=== PATIENT | female | born 1995 | race Caucasian/White ===

== ENCOUNTER 2023-04-17 13:36 | Emergency (ER) | payer BC, SELFPAY ==
[2023-04-17 13:40] VITALS: BP 150/85; PULSE 85; RESP 16; TEMP 36.3; O2SAT 100
--- NOTE | 2023-04-17 14:07 | ED.GENADULT ---
HPI - General Adult General Chief complaint: Unspecified Stated complaint: positive test/has nexplanon Time Seen by Provider: 04/17/23 13:47 Source: patient Mode of arrival: ambulatory Limitations: no limitations History of Present Illness HPI narrative: This is a 27-year-old female who presents to the ED for concerns of . She is here for confirmation of positive test taken at home. She states she has been having some symptoms for the past 1-1/2 weeks. These include nausea fatigue, vaginal spotting today and urinary frequency. Patient reports that she has a Nexplanon in place that was implanted 4 months ago. She had an IUD before this. She states she does not normally have regular periods. She states she does not want a full work-up today but wants confirmation of the test. She states her OB stopped taking her insurance. G1, P1. Related Data Allergies Allergy/AdvReac Type Severity Reaction Status Date / Time No Known Allergies Allergy Unverified 04/17/23 13:45 Review of Systems Review of Systems: All systems as dictated in HPI Exam Narrative: GENERAL: Well-appearing, well-nourished, and in no acute distress. HEAD: Normocephalic, atraumatic. EYES: PERRLA and EOMI. ENT: Nares clear, no rhinorrhea or epistaxis. Mucous membranes moist. Oropharynx without tonsillar hypertrophy exudate or other lesions. NECK: Supple. No adenopathy or masses. CHEST: No respiratory distress. Clear to auscultation. No wheezes rales or rhonchi HEART: Regular rate and rhythm. No murmur heard. Normal peripheral pulses. ABDOMEN: Soft, nontender, nondistended, normal active bowel sounds. MSK: Normal range of motion. No edema. SKIN: Warm, dry, no rash. NEURO: Alert and oriented x3. No focal deficits. PSYCH: Normal mood and affect. Course Vital Signs Vital signs: Vital Signs Temperature 97.3 F L 04/17/23 13:40 Pulse Rate 85 04/17/23 13:40 Respiratory Rate 16 04/17/23 13:40 Blood Pressure 150/85 H 04/17/23 13:40 Pulse Oximetry 100 04/17/23 13:40 Oxygen Delivery Room Air 04/17/23 13:40 Temperature 97.3 F L 04/17/23 13:40 Pulse Rate 88 04/17/23 15:44 Respiratory Rate 18 04/17/23 15:44 Blood Pressure 138/82 04/17/23 15:44 Pulse Oximetry 98 04/17/23 15:44 Oxygen Delivery Room Air 04/17/23 13:40 Medical Decision Making MDM Narrative Medical decision making narrative: This is a 27-year-old female who presents to the ED with concern for positive test at home. She is seeking confirmation of this test. She does not want any further work-up. Vitals are normal. Exam is benign. Serum beta hCG quantitative shows negative. Explained to her that her test was negative today. We have given her [facility] referral. Pt will be discharged in stable condition. Return precautions given and supportive measures discussed. Pt is understanding and agreeable with plan for discharge and follow-up with PCP. Vital Signs Vital Signs: Vital Signs Temperature 97.3 F L 04/17/23 13:40 Pulse Rate 85 04/17/23 13:40 Respiratory Rate 16 04/17/23 13:40 Blood Pressure 150/85 H 04/17/23 13:40 Pulse Oximetry 100 04/17/23 13:40 Oxygen Delivery Room Air 04/17/23 13:40 Temperature 97.3 F L 04/17/23 13:40 Pulse Rate 88 04/17/23 15:44 Respiratory Rate 18 04/17/23 15:44 Blood Pressure 138/82 04/17/23 15:44 Pulse Oximetry 98 04/17/23 15:44 Oxygen Delivery Room Air 04/17/23 13:40 Lab Data Labs: Lab Results 04/17/23 Range/Units 14:18 Beta HCG, Quant < 2.39 mIU/ML Discharge Plan Discharge Clinical Impression: Encounter for test Patient Disposition: Home, Self-Care Condition: Stable Instructions: Antibiotic Form Additional Instructions: Your test on the serum draw today is negative. It does not appear that you are . Your symptoms may be due to recent N
[2023-04-17 15:08] LABS: Beta HCG Quantitative < 2.39 mIU/ML
[2023-04-17 15:44] VITALS: BP 138/82; PULSE 88; RESP 18; O2SAT 98
== END 2023-04-17 15:45 | disposition home or self-care (01) ==
PROVIDERS: Emergency Provider Physician Assistant; PCP Family Medicine
DX: Z32.02 Encounter for pregnancy test, result negative (principal)
CPT/HCPCS: 36415; 84702; 99283

== ENCOUNTER 2023-06-15 11:32 | Emergency (ER) | payer OTHER, SELFPAY ==
[2023-06-15 11:34] VITALS: BP 135/99; PULSE 82; RESP 14; TEMP 37; O2SAT 99
--- NOTE | 2023-06-15 12:25 | ED.PREGNANCY ---
HPI - General Chief complaint: DRY PLASTERER Stated complaint: requesting test Time Seen by Provider: 06/15/23 12:20 History of Present Illness HPI Narrative: Patient is a , LMP 6 months ago, here with concern for . Patient states that she had her Nexplanon removed approximately 3 weeks ago through her OBGYN. Her and her have been trying to get since then. She states that she has been having breast tenderness that seems to be worsening as well as some vague abdominal pain and fatigue. She has also had some increased urinary frequency. She has been suspecting that she could be already so she has taken more than a dozen test at home. She notes that they have been very results between positive and negative and she came into the emergency department for confirmation. She has had 1 prior which ended in a spontaneous uncomplicated vaginal delivery. No vaginal discharge or bleeding. She does have a history of PCOS. No fever or chills. Related Data Allergies Allergy/AdvReac Type Severity Reaction Status Date / Time No Known Allergies Allergy Verified 06/15/23 11:57 Review of Systems Review of Systems: All systems reviewed & are unremarkable except as noted in HPI and below Exam Narrative: GENERAL: Well-appearing, well-nourished, and in no acute distress. HEAD: Normocephalic, atraumatic. EYES: PERRLA and EOMI. ENT: Nares clear. Mucous membranes moist. NECK: Supple. CHEST: Clear to auscultation. No respiratory distress. HEART: Regular rate and rhythm. Normal peripheral pulses. ABDOMEN: Soft, nontender, nondistended. EXTREMITIES: Normal range of motion. No edema. SKIN: Warm, dry, no rash. NEURO: No focal deficits. Alert and oriented x3. PSYCH: Normal mood and affect. Course Course Emergency Course: Chart review performed. Patient here with concern for . Triage urine POC negative. Vitals grossly normal. Patient seen and evaluated, in no distress. History and exam most consistent with her likely about to have her 1st menstrual cycle after removal of Nexplanon. Patient continues to be concerned for despite negative urine test here. Will do serum test as well as UA to check for UTI and point of care glucose to check for possible new onset diabetes given her increased urinary frequency. Long discussion with patient over the fact that any ultrasound would be nondiagnostic at this point for both intrauterine or ectopic because the estimated gestational age would be only a week or 2 if she were . Extensive conversation had with patient that she should follow-up closely with her OBGYN regardless of results today to follow the symptoms and have recurrent testing if needed. Beta hCG < 2.39. Point of care glucose normal. Urine negative for UTI. The results of pertinent diagnostic studies and exam findings were discussed. The patient?s provisional diagnosis and plan of care were discussed with the patient and present family. The patient and/or present family expressed understanding of the diagnosis and plan. The nurse was instructed to provide written instructions and appropriate follow-up information. The patient understands their need and responsibility to obtain additional follow-up as instructed. The risks of medications administered and prescribed were discussed with the patient and family present. Vital Signs Vital signs: Vital Signs Temperature 98.6 F 06/15/23 11:34 Pulse Rate 82 06/15/23 11:34 Respiratory Rate 14 06/15/23 11:34 Blood Pressure 135/99 H 06/15/23 11:34 Pulse Oximetry 99 06/15/23 11:34 Oxygen Delivery Room Air 06/15/23 11:34 Temperature 98.6 F 06/15/23 11:34 Pulse Rate 82 06/15/23 11:34 Respiratory Rate 14 06/15/23 11:34 Blood Pressure 135/99 H 06/15/23 11:34 Pulse Oximetry 99 06/15/23 11:34 Oxygen Delivery Room Air 06/15/23 11:34
[2023-06-15 12:56] LABS: Glucose Point of Care 107 mg/dl (65-105)
[2023-06-15 13:27] LABS: Beta HCG Quantitative < 2.39 mIU/ML
[2023-06-15 13:50] LABS: Appearance Urine Clear (Clear); Bilirubin Urine Negative (Negative); Blood Urine Negative (Negative); Color Urine Yellow (Yellow); Glucose Urine UA Negative (Negative); Ketones Urine Negative (Negative); Leukocyte Esterase Ur Negative LEU/UL (Negative); Nitrate Urine Negative (Negative); Protein Urine Negative (Negative); Specific Grav Ur 1.019 (1.001-1.035); pH Urine 7.5 (5.0-9.0)
[2023-06-15 13:51] LABS: Add Urine Microscopic? NO
== END 2023-06-15 14:21 | disposition home or self-care (01) ==
PROVIDERS: Emergency Provider Student in an Organized Health Care Education/Training Program; PCP Family Medicine
DX: N64.4 Mastodynia (principal); R35.0 Frequency of micturition
CPT/HCPCS: 36415; 81003; 81025; 82948; 84702; 99283

== ENCOUNTER 2025-06-24 09:53 | Emergency (ER) | payer OTHER, SELFPAY ==
--- NOTE | 2025-06-24 09:55 | ED.GENADULT ---
HPI - General Adult General Chief complaint: Eye Problems Stated complaint: Left Eye Irritation Time Seen by Provider: 06/24/25 10:03 Source: patient, RN notes reviewed and old records reviewed Mode of arrival: ambulatory Limitations: no limitations History of Present Illness HPI narrative: 30-year-old female presents to the [facility] with complaints of left eye irritation, redness. States yesterday started with some irritation and drainage. Woke up this morning with crusting. Denies any pain. Does not wear contacts Related Data Allergies Allergy/AdvReac Type Severity Reaction Status Date / Time No Known Allergies Allergy Verified 06/24/25 10:09 Review of Systems Review of Systems: All systems reviewed & are unremarkable except as noted in HPI and below Constitutional: Constitutional: Reports no additional constitutional complaints Eyes: Eyes: Reports as per HPI ENT: Reports system reviewed and no additional complaints, except as documented Cardiovascular: Cardiovascular: Reports no additional cardiovascular complaints, Denies chest pain and Denies dyspnea Respiratory: Respiratory: Reports no additional respiratory complaints, Denies chest congestion, Denies cough and Denies dyspnea PMFSH Comments At the time of my signature, I reviewed and agree with the nursing past medical, surgical, social, and family history. There is no relevant family history pertinent to the patient complaint. Exam Const: General: cooperative, healthy appearing, comfortable, no acute distress, well developed, alert and well nourished Nutritional Appearance: well nourished Orientation/consciousness: patient oriented x3 Limitations: no limitations HENMT: Head: normal to inspection Ears: hearing grossly normal bilaterally, external ears normal, TM's normal bilaterally, EAC's normal, mastoids normal and no periauricular adenopathy Face/Nose/Sinus: Normal external nose present Eyes: General: appearance normal, both eyes and all related structures Alignment and Position: alignment normal Eyelids: eyelid abnormality left upper eyelid lid margins crusty/scaly and left lower eyelid lid margins crusty/scaly; without erythema, without swelling and nontender Conjunctivae: conjunctival abnormality left conjunctival injection and discharge Neck: Neck: normal visual inspection, full ROM, no lymphadenopathy and no meningeal signs Chest: Chest palpation & inspection: normal inspection of the chest Resp: Effort & Inspection: normal respiratory effort and able to speak in complete sentences Cardio: Rate: regular rate Skin: General skin exam: normal color and no rashes or lesions noted Neuro: General: patient oriented x3, gait normal, moves all extremities and no meningeal signs Cognition (Neuro): normal cognition Speech: normal speech Gait exam (Neuro): Normal gait present Extrem: General: normal to inspection, full ROM, capillary refill normal and normal gait Psych: Appearance: grossly normal and well kempt Mental Status: mental status grossly normal Speech and movement: Normal speech and movement present and Clear speech present Affect: normal affect Attitude: cooperative Course Course Level of Care: Express Care Visit Vital Signs Vital signs: Vital Signs Temperature 98.6 F 06/24/25 10:03 Pulse Rate 83 06/24/25 10:03 Respiratory Rate 18 06/24/25 10:03 Blood Pressure 146/94 H 06/24/25 10:03 Pulse Oximetry 99 06/24/25 10:03 Oxygen Delivery Room Air 06/24/25 10:03 Temperature 98.6 F 06/24/25 10:03 Pulse Rate 83 06/24/25 10:03 Respiratory Rate 18 06/24/25 10:03 Blood Pressure 146/94 H 06/24/25 10:03 Pulse Oximetry 99 06/24/25 10:03 Oxygen Delivery Room Air 06/24/25 10:03 Reviewed Medical Decision Making MDM Narrative Medical decision making narrative: Patient sitting in exam room. Patient is nontoxic, vitals stable. Patient presents for eye discharge, redness and crusting. No trauma. Does not wear contacts. Patient has crusting to the left eye, redness, conjunctival injection Patient is appropriate for outpatient treatment of conjunctivitis with strong encouragement to follow-up with eye doctor Discharge instructions reviewed with patient, as well as provided in writing per nursing staff. The instructions also include specific and strict return/GO TO THE ER as well as f/u information. All questions have been answered, and the patient deny any further questions with discharge and discharge plan. Some parts of this dictation were generated by voice recognition software and may contain typographical and/or grammatical inaccuracies. Differential Diagnosis Differential Diagnosis: Conjunctivitis Medical Records Medical records reviewed: Yes I reviewed the external patient's medical records. Vital Signs Vital Signs: Vital Signs Temperature 98.6 F 06/24/25 10:03 Pulse Rate 83 06/24/25 10:03 Respiratory Rate 18 06/24/25 10:03 Blood Pressure 146/94 H 06/24/25 10:03 Pulse Oximetry 99 06/24/25 10:03 Oxygen Delivery Room Air 06/24/25 10:03 Temperature 98.6 F 06/24/25 10:03 Pulse Rate 83 06/24/25 10:03 Respiratory Rate 18 06/24/25 10:03 Blood Pressure 146/94 H 06/24/25 10:03 Pulse Oximetry 99 06/24/25 10:03 Oxygen Delivery Room Air 06/24/25 10:03 Reviewed Lab Data Lab results reviewed: Yes I reviewed the patient's lab results. Labs: Reviewed Critical Care Time Critical Care Time Critical Care Time: No Discharge Plan Discharge Clinical Impression: Conjunctivitis of left eye Patient Disposition: Home Condition: Stable Instructions: Antibiotic Form, Conjunctivitis (ED) Additional Instructions: Apply a cool, damp compress to your affected eye. Be sure to use a clean cloth each time to avoid spreading the infection. Gently clean your eyes with wet cotton balls or pads to remove crusty buildup or irritating discharge. Use eyedrops as prescribed Maintain good hygiene and only touch your eyes with freshly washed hands. You should follow-up with an eye doctor within the next [address] [facility]: [place]- [phone] [facility] [phone] [facility] [phone] [place]: [facility] [phone] or [phone] [facility] [phone] [facility] [phone] [facility] [phone] [facility]- [phone] Patient Language: Cymraes Prescriptions: New polymyxin B sulf-trimethoprim 10,000 unit- 1 mg/mL drops 1 drp LEFT EYE QID 7 Days Qty: 10 0RF Rx Instructions: while awake; do not exceed 6 doses in 24 hours Follow-up/Referrals: UNKNOWN,DOCTOR [Non-Staff]
[2025-06-24 10:03] VITALS: BP 146/94; PULSE 83; RESP 18; TEMP 37; O2SAT 99
== END 2025-06-24 10:18 | disposition home or self-care (01) ==
PROVIDERS: Emergency Provider Nurse Practitioner
DX: H10.9 Unspecified conjunctivitis (principal)
CPT/HCPCS: 99213; G0463